=== PATIENT | male | born 1980 | race Two or more races ===

== ENCOUNTER 2025-03-09 15:29 | Inpatient (IN) | payer MEDICAID ==
[~2025-03-09] VITALS: Ht 167.6 cm; Wt 162.2 kg
[2025-03-09] MEDS: SODIUM CHLORIDE 0.9% 1,000 ML IV ONE (16:03)
--- NOTE | 2025-03-09 16:11 | ED.PDOC ---
GI ASSESSMENT HPI Comments HPI: Poor Historian. 44-year-old male brought in by ambulance from home for evaluation of three day history of generalized weakness with the associated dizziness and nausea and diarrhea yellow in color. Denies any vomiting. Patient states that his abdomen is severely distended and he has generalized abdominal discomfort. He said he had similar episodes approximately two weeks ago that lasted for one-week and resolved spontaneously however this time is abdomen is more distended than usual that concerned him so he called 911. Patient is taking Humalog for weight loss. Past Medical History: Past Surgical History: Cholecystectomy REVIEW OF SYSTEMS: CONSTITUTIONAL: Denies acute: fever, diaphoresis, chills, HEAD: Denies acute: headache, photophobia Eyes: Denies acute: Double vision, vision loss, eye pain, eye discharge. EARS: Denies acute: tinnitus, hearing loss, ear discharge, ear pain, THROAT: Denies acute: sore throat, swelling, difficulty swallowing , pain with swallowing, change in voice. NECK: Denies acute: neck pain, neck swelling, stiff neck. HEART: Denies acute : chest pain, palpitations, LUNGS: Denies acute: SOB, wheezing, cough, hemoptysis ABDOMEN: Denies acute: , Vomiting, melena , hematemesis, hematochezia SKIN: Denies acute: rash, redness, lesions, itchiness. EXTREMITIES: Denies acute: calf pain, numbness, tingling, weakness, denies pain in extremity. Denies acute: Low back pain. Neuro: Denies acute: focal neurological deficit, motor or sensory focal neurological deficit, tremors, seizure like activity, confusion, change in mental status, loss of bowel or bladder function, cauda equina like symptoms. : Denies acute: dysuria, hematuria, flank pain, increase in urinary frequency. PSYCH: Denies acute: hallucination, suicidal ideation, homicidal ideation. PHYSICAL EXAM: General: ---[id number]-----acute distress, awake and alert. Head: normocephalic, atraumatic. Neck: supple, trachea is midline, no swelling. Throat: Normal phonation. Eyes:, no erythema, no purulent discharge, no proptosis, no icterus. Heart: regular rate, regular rhythm, no significant murmur appreciated. Lungs: no apparent respiratory distress, Able to speak in full sentences. No wheezing, no rhonchi, no crackles. No stridors Clear to auscultation bilaterally. Abdomen: Generalized abdominal tender to palpation, noted generalized distended, soft, no guarding, no rebound, + bowel sounds. History of umbilical hernia, morbidly obese Neuro: Awake, Alert, oriented to name, self, situation, follows commands GCS=15. Speech is normal. Skin: no petechia, no purpura, no cyanosis, non-pale, not jaundice. Lower extremities: --no - Pitting edema no deformity, no focal swelling, no calf TTP. Makes eye contact. moves all four extremities. Face: no apparent facial droop. ED COURSE: DISCLAIMER: This medical document was created using an electronic medical record system with voice recognition software and computerized dictation system. Although this document has been carefully reviewed, there might still be some phonetic and typographical errors. Occasional wrong-word or "sound-alike" substitutions may have occurred due to the inherent limitations of voice recognition software. These areas are purely typographical due to imperfections of the software programs and do not reflect any compromise in the patient's medical care. Please read the chart carefully and recognize, using context, where these substitutions have occurred. Chief Complaint: Abdominal Pain Time Seen by MD: 15:35 Reviewed Notes: Allergies Allergies: Coded Allergies: NO KNOWN ALLERGIES (Unverified , 03/09/25) Information Source: Patient, Emergency Med Personnel Mode of Arrival: EMS Past Medical History PAST MEDICAL HISTORY: Denies Surgical History: Denies all surgeries Social History Smoker: Non-Smoker Alcohol: Denies ETOH Use Drugs: Denies Drug Use Lives In: Home X-Ray, Labs, Meds, VS Vital Signs Date Time Temp Pulse Resp B/P (MAP) Pulse Ox O2 Delivery O2 Flow Rate FiO2 03/09/25 15:50 98.8 110 20 144/78 (100) 96 98.8 03/09/25 15:50 Room Air* 0 21 03/09/25 15:32 98.5 102 22 132/88 97 98.5 Lab Test 03/09/25 15:44 Range/Units White Blood Count 17.8 H 4.4-10.8 10^3/uL Red Blood Count 6.67 H 4.5-5.90 10^6/uL Hemoglobin 19.3 H 13.5-17.5 g/dL Hematocrit 56.7 H 41.0-53.0 % Mean Corpuscular Volume 85.1 80.0-100.0 fL Mean Corpuscular Hemoglobin 28.9 28.0-32.0 pg Mean Corpuscular Hemoglobin Concent 34.0 32.0-36.0 g/dL Red Cell Distribution Width 15.0 H 11.8-14.3 % Platelet Count 298 140-450 10^3/uL Mean Platelet Volume 8.2 6.9-10.8 fL Neutrophils (%) (Auto) 84.8 H 37.0-80.0 % Lymphocytes (%) (Auto) 8.9 L 10.0-50.0 % Monocytes (%) (Auto) 5.2 0.0-12.0 % Eosinophils (%) (Auto) 0.8 0.0-7.0 % Basophils (%) (Auto) 0.3 0.0-2.0 % Neutrophils # (Auto) 15.1 H 1.6-8.6 10 ^3/uL Lymphocytes # (Auto) 1.6 0.4-5.4 10 ^3/uL Monocytes # (Auto) 0.9 0-1.3 10 ^3/uL Eosinophils # (Auto) 0.1 0-0.8 10 ^3/uL Basophils # (Auto) 0.1 0-0.2 10 ^3/uL Nucleated Red Blood Cells 0.4 % Prothrombin Time 11.4 9.3-11.8 sec Prothrombin Time INR 1.08 0.9-1.15 Activated Partial Thromboplast Time 27.2 24.5-34.5 SEC Sodium Level 138 136-145 mmol/L Potassium Level 3.8 3.5-5.1 mmol/L Chloride Level 107 98-107 mmol/L Carbon Dioxide Level 19 L 20-31 mmol/L Anion Gap 12 5-15 Blood Urea Nitrogen 21 9-23 mg/dL Creatinine 1.05 0.700-1.30 mg/dL Glomerular Filtration Rate Calc 90 >90 mL/min BUN/Creatinine Ratio 20.0 10.0-20.0 Serum Glucose 129 H 74-106 mg/dL Lactic Acid Level 1.5 0.4-2.0 mmol/L Calcium Level 9.6 8.7-10.4 mg/dL Total Bilirubin 0.9 0.2-1.0 mg/dL Aspartate Amino Transferase (AST) 59 H 13-40 U/L Alanine Aminotransferase (ALT) 125 H 7-40 U/L Alkaline Phosphatase 102 46-116 U/L Troponin I High Sensitivity < 3 L </=54 ng/L Total Protein 8.0 5.7-8.2 g/dL Albumin 4.9 H 3.2-4.8 g/dL Lipase 41 12-53 U/L Current Medications Medications (Trade) Dose Ordered Sig/Kya Route Start Time Stop Time Status Last Admin Sodium Chloride 1,000 ml @ 1,000 mls/hr Q1H ONCE IV 03/09/25 15:45 03/09/25 16:44 DC 03/09/25 16:03 Lactated Ringer's 1,900 ml @ 1,900 mls/hr ONCE ONCE IV 03/09/25 16:45 03/09/25 18:09 DC 03/09/25 16:45 [place] [address] Ph: [phone] DIAGNOSTIC IMAGING Diagnostic Imaging Report : [id number] Signed PATIENT: PAL AMES ACCT: [id number] UNIT: [id number] : 1980 LOC: ER ROOM / BED: / AGE / SEX: 44 / M ADM STATUS: REG ER SERVICE 1535 ORDERING PHYSICIAN: TIANA BAEZA DO PROCEDURE(s): ABPL - CT AB PEL WO CON-NO ORAL OR IV REASON: abd pain n/d ORDER NUMBER(s): [id number], ACCESSION NUMBER(s): [id number] Exam: CT CT AB PEL WO CON-NO ORAL OR IV History: abd pain n/d Comparison Study: None TECHNIQUE: Multidetector CT of the abdomen was performed from lung bases to pubic symphysis. Imaging was performed without IV contrast. Axial, coronal and sagittal multiplanar reformats were obtained from the axial data set by the morena hnologist. Radiation Dose Information: CT Dose: CTDI volume is 35.37 mGy. Dose-length product is 2023.16 mGy*cm FINDINGS: Evaluation of solid organs is limited due to lack of intravenous contrast use. Findings: Lung Bases: No acute or significant lung base finding. Normal heart size. Trace bilateral pleural effusions Liver: The liver is normal in size. No focal lesions. Gallbladder and Biliary Tree: Gallbladder has been surgically removed. Spleen: Unremarkable Pancreas: The pancreas is grossly normal in appearance. Adrenal Glands: Unremarkable Kidneys: Kidneys are grossly normal without calculi or hydronephrosis. Bladder: Grossly unremarkable for degree of distention. Bowel: The stomach is grossly normal in appearance. Small bowel and colon are normal in caliber and distribution. Mildly dilated fluid-filled small bowel may represent enteritis. The appendix is not visualized; however, no secondary findings of acute appendicitis identified. Ascites: Absent Lymphadenopathy: No mesenteric, retroperitoneal or periportal lymphadenopathy. Abdominal Wall and Mesentery: Unremarkable. Vasculature: The visualized abdominal aorta is normal in size and caliber. Evaluation of abdominal and pelvic vessels is limited due to lack of intravenous contrast. Pelvic Organs: Unremarkable Musculoskeletal: No aggressive focal bony lesions, acute fractures or dislocation. Soft tissues: Unremarkable IMPRESSION: 1. Mildly dilated fluid-filled small bowel may represent enteritis. 2. No free air or free fluid. HS:Y Radiation optimization: All CT scans at this facility use at least one of these dose optimization techniques: automated exposure control mA and/or kV adjustment per patient size (includes targeted exams where dose is matched to clinical indication) or iterative reconstruction. ATED BY: AMEE BENNETT Jr., DO DICTATED DATE/TIME: 03/09/25 162 SIGNED BY: AMEE BENNETT Jr., SIGNED DATE/TIME: 03/09/251628 CC: SEPSIS Sepsis Screen Date sepsis recognized/suspect: Mar 09, 2025 Time Sepsis recognized/suspect: 1550 Recent Procedure: No On Antibiotic Therapy: No Respiratory Rate >20: Yes Heart Rate >90: Yes Temp<36 C (96.8 F) or >38.3 C: No SBP <90 or MAP <65 mmHG: No New Acute Mental Status Change: No Is the patient on CPAP, BIPAP,: No Physician Orders Policy And Planning Manager (03/09/25 ) Urinalysis (03/09/25 15:35) Electrocardigram (03/09/25 15:35) Ct Ab Pel Wo Con-No Oral Or Iv (03/09/25 15:35) Nasogastric Tube Management (03/09/25 16:09) Npo Except For Medications (03/09/25 16:10) Npo (Nothing By Mouth) Diet (03/09/25 Dinner) Chest Xray 1 View (03/09/25 16:29) Blood Culture (03/09/25 16:43) Notify Md If Map <65 Or Bp<90 (03/09/25 16:43) If Map<65 Start Vasopressor (03/09/25 16:43) Sepsis Reassesment After Fluid (03/09/25 17:43) Pharmacy Clarification: (03/09/25 23:59) Ng To Lis (03/09/25 17:31) Vital Signs Date Time Temp Pulse Resp B/P (MAP) Pulse Ox O2 Delivery O2 Flow Rate FiO2 03/09/25 15:50 98.8 110 20 144/78 (100) 96 98.8 03/09/25 15:50 Room Air* 0 21 03/09/25 15:32 98.5 102 22 132/88 97 98.5 Laboratory Tests Test 03/09/25 15:44 Lactic Acid Level 1.5 mmol/L (0.4-2.0) White Blood Count 17.8 10^3/uL (4.4-10.8) H Medications Medications Dose Ordered Sig/Kya Route Start Time Stop Time Status Last Admin Dose Admin Lactated Ringer's 1,900 ml @ 1,900 mls/hr ONCE ONCE IV 03/09/25 16:45 03/09/25 18:09 DC 03/09/25 16:45 Sodium Chloride 1,000 ml @ 1,000 mls/hr Q1H ONCE IV 03/09/25 15:45 03/09/25 16:44 DC 03/09/25 16:03 Departure 1 Departure Time of Disposition: 16:11 Impression: Primary Impression: Enteritis Additional Impressions: Leukocytosis Elevated LFTs Sepsis Disposition: 09 ADMITTED INPATIENT Admit to: Tele Condition: Guarded Additional Instructions: [address] [address] Ph: [phone] DIAGNOSTIC IMAGING Diagnostic Imaging Report : [id number] Signed PATIENT: PAL AMES ACCT: [id number] UNIT: [id number] : 1980 LOC: ER ROOM / BED: / AGE / SEX: 44 / M ADM STATUS: REG ER SERVICE 1535 ORDERING PHYSICIAN: TIANA BAEZA DO PROCEDURE(s): ABPL - CT AB PEL WO CON-NO ORAL OR IV REASON: abd pain n/d ORDER NUMBER(s): [id number], ACCESSION NUMBER(s): [id number] Exam: CT CT AB PEL WO CON-NO ORAL OR IV History: abd pain n/d Comparison Study: None TECHNIQUE: Multidetector CT of the abdomen was performed from lung bases to pub ic symphysis. Imaging was performed without IV contrast. Axial, coronal and sagittal multiplanar reformats were obtained from the axial data set by the technologist. Radiation Dose Information: CT Dose: CTDI volume is 35.37 mGy. Dose-length product is 2023.16 mGy*cm FINDINGS: Evaluation of solid organs is limited due to lack of intravenous contrast use. Findings: Lung Bases: No acute or significant lung base finding. Normal heart size. Trace bilateral pleural effusions Liver: The liver is normal in size. No focal lesions. Gallbladder and Biliary Tree: Gallbladder has been surgically removed. Spleen: Unremarkable Pancreas: The pancreas is grossly normal in appearance. Adrenal Glands: Unremarkable Kidneys: Kidneys are grossly normal without calculi or hydronephrosis. Bladder: Grossly unremarkable for degree of distention. Bowel: The stomach is grossly normal in appearance. Small bowel and colon are normal in caliber and distribution. Mildly dilated fluid-filled small bowel may represent enteritis. The appendix is not visualized; however, no secondary findings of acute appendicitis identified. Ascites: Absent Lymphadenopathy: No mesenteric, retroperitoneal or periportal lymphadenopathy. Abdominal Wall and Mesentery: Unremarkable. Vasculature: The visualized abdominal aorta is normal in size and caliber. Evaluation of abdominal and pelvic vessels is limited due to lack of intravenous contrast. Pelvic Organs: Unremarkable Musculoskeletal: No aggressive focal bony lesions, acute fractures or dislocation. Soft tissues: Unremarkable IMPRESSION: 1. Mildly dilated fluid-filled small bowel may represent enteritis. 2. No free air or free fluid. HS:Y Radiation optimization: All CT scans at this facility use at least one of these dose optimization techniques: automated exposure control mA and/or kV adjustment per patient size (includes targeted exams where dose is matched to clinical indication) or iterative reconstruction. ATED BY: AMEE BENNETT Jr., DO DICTATED DATE/TIME: 03/09/251628 SIGNED BY: AMEE BENNETT Jr., SIGNED DATE/TIME: 03/09/251628 CC: Discharged With: Self I personally scribed for TIANA BAEZA DO ([email or web address]) on 03/09/25 at 16:43. Electronically submitted by Samuel Pacheco ([email or web address]). I personally scribed for TIANA BAEZA DO ([email or web address]) on 03/09/25 at 16:46. Electronically submitted by Samuel Pacheco ([email or web address]). TIANA BAEZA DO Mar 09, 2025 16:11
[2025-03-09 16:14] LABS: Hemoglobin 19.3 g/dL (13.5-17.5); Mean Corpuscular Volume 85.1 fL (80.0-100.0); Nucleated Red Blood Cells % 0.4 %
[2025-03-09 16:17] LABS: Mean Corpuscular Hemoglobin 28.9 pg (28.0-32.0)
[2025-03-09 16:26] LABS: Alkaline Phosphatase 102 U/L (46-116); Anion Gap 12 (5-15); BUN/Creatinine Ratio 20.0 (10.0-20.0); Blood Urea Nitrogen 21 mg/dL (9-23); Calcium 9.6 mg/dL (8.7-10.4); Lipase 41 U/L (12-53); Potassium 3.8 mmol/L (3.5-5.1); Sodium 138 mmol/L (136-145); Total Protein 8.0 g/dL (5.7-8.2)
[2025-03-09 16:27] LABS: Bilirubin, Total 0.9 mg/dL (0.2-1.0)
[2025-03-09 16:28] LABS: Hematocrit 56.7 % (41.0-53.0)
[2025-03-09 16:32] LABS: Alanine Aminotransferase 125 U/L (7-40); Albumin 4.9 g/dL (3.2-4.8); Carbon Dioxide 19 mmol/L (20-31); Chloride 107 mmol/L (98-107); Glucose 129 mg/dL (74-106)
--- NOTE | 2025-03-09 16:32 | DVH ---
Exam: CT CT AB PEL WO CON-NO ORAL OR IV History: abd pain n/d Comparison Study: None TECHNIQUE: Multidetector CT of the abdomen was performed from lung bases to pubic symphysis. Imaging was performed without IV contrast. Axial, coronal and sagittal multiplanar reformats were obtained fr om the axial data set by the technologist. Radiation Dose Information: CT Dose: CTDI volume is 35.37 mGy. Dose-length product is 2023.16 mGy*cm FINDINGS: Evaluation of solid organs is limited due to lack of intravenous contrast use. Findings: Lung Bases: No acute or significant lung base finding. Normal heart size. Trace bilateral pleural ef fusions Liver: The liver is normal in size. No focal lesions. Gallbladder and Biliary Tree: Gallbladder has been surgically removed. Spleen: Unremarkable Pancreas: The pancreas is grossly normal in appearance. Adrenal Glands: Unremarkable Kidneys: Kidneys are grossly normal without calculi or hydronephrosis. Bladder: Grossly unremarkable for degree of distention. Bowel: The stomach is grossly normal in appearance. Small bowel and colon are normal in caliber and d istribution. Mildly dilated fluid-filled small bowel may represent enteritis. The appendix is not vis ualized; however, no secondary findings of acute appendicitis identified. Ascites: Absent Lymphadenopathy: No mesenteric, retroperitoneal or periportal lymphadenopathy. Abdominal Wall and Mesentery: Unremarkable. Vasculature: The visualized abdominal aorta is normal in size and caliber. Evaluation of abdominal a nd pelvic vessels is limited due to lack of intravenous contrast. Pelvic Organs: Unremarkable Musculoskeletal: No aggressive focal bony lesions, acute fractures or dislocation. Soft tissues: Unremarkable IMPRESSION: 1. Mildly dilated fluid-filled small bowel may represent enteritis. 2. No free air or free fluid. HS:Y Radiation optimization: All CT scans at this facility use at least one of these dose optimization morena hniques: automated exposure control mA and/or kV adjustment per patient size (includes targeted exam s where dose is matched to clinical indication) or iterative reconstruction.
[2025-03-09] MEDS: LACTATED RINGER'S 1,900 ML IV ONE (16:45)
--- NOTE | 2025-03-09 17:01 | DVH ---
CHEST RADIOGRAPH Indication: S/P NGT PALCEMENT Technique: Single frontal view of the chest was obtained Comparison: None FINDINGS: Lines and Tubes: None Lungs: No focal consolidation. Pleura: No effusion. No pneumothorax. Cardiomediastinal contours: Unremarkable Bones: No acute osseous abnormality. IMPRESSION: 1. Enteric tube below the left diaphragm in the stomach. HS:Y
[2025-03-09 17:36] LABS: INR 1.08 (0.9-1.15); Partial Thromboplastin Time 27.2 SEC (24.5-34.5); Prothrombin Time 11.4 sec (9.3-11.8)
[2025-03-09] MEDS: CIPROFLOXACIN 400MG/200ML 200 ML IV ONE (18:28)
[2025-03-09] MEDS: FAMOTIDINE (10MG/ML) 2ML VL IV ONE (19:37)
[2025-03-09] MEDS ORDERED: MORPHINE SULFATE INJ 2 MG/ml SYRG IV PRN ×2 (20:15→21:30)
[2025-03-09] MEDS ORDERED: HYDROcodone-ACET 5/325MG TAB PO PRN (20:15)
[2025-03-09] MEDS ORDERED: DOCUSATE SOD 100 MG CAP PO PRN (20:15)
[2025-03-09] MEDS ORDERED: ACETAMINOPHEN 325 MG TAB PO PRN (20:15)
[2025-03-09] MEDS: SODIUM CHLORIDE 0.9% 1,000 ML IV SCH (20:28)
[2025-03-09 21:24] LABS: Urine Protein, UAD TRACE (Negative)
[2025-03-09] MEDS ORDERED: NITROGLYCERIN 0.4 MG SL TAB SL PRN (21:30)
[2025-03-09] MEDS: ONDANSETRON HCL 4 MG/2 ML VIAL IV PRN (21:33)
--- NOTE | 2025-03-09 21:38 | DVHHP2 ---
History of Present Illness Reason for Visit: Enteritis History of Present Illness The patient is a 44-year-old male with past medical history of gallstones status post cholecystectomy who presented to [facility] ED with complaint of generalized weakness. Patient reports symptoms progressively get worse with severely distended abdomen, dizziness, nausea, and diarrhea in yellow color. Patient reports similar episode a proximally two weeks ago that lasted for one week and resolved spontaneously, however, this time his abdomen is more distended than usual that prompted this visit. Patient was seen and evaluated in the ED, laboratory data shows WBC 17.8, platelets 298, sodium 138, potassium 3.8, BUN 21, creatinine 1.05, GFR 90, glucose 129, calcium 9.6, albumin 4.9, troponin 3, AST 59, ALT 125, blood pressure 119/62, heart rate 93, temperature 97.6 F, O2 saturation 93% on oxygen. Abdomen/pelvis CT revealing mildly dilated fluid-filled small bowel may represent enteritis, no free air or free fluid. Chest x-ray revealing enteric tube below the left diaphragm in the stomach. Patient was started on IV antibiotic regimen Flagyl, please see medication orders section in the computer. On my assessment, patient denied chest pain, no headache, no dizziness, currently on oxygen, no abdominal pain, no nausea diarrhea at this moment, no fever, no chills. Patient was admitted for further evaluation and medical management. Past Medical History Gallstones Past Surgical History Cholecystectomy Family History Reviewed, noncontributory to the management of this case. Past Social History The patient lives at home, denies smoking, alcohol or illicit drugs abuse. Review of Systems Constitutional: No: Fever, Chills, Sweats, Weakness, Malaise, Other Eyes: No: Pain, Vision change, Conjunctivae inflammation, Eyelid inflammation, Other, Redness ENT: Other (NG tube in place); No: Ear pain, Ear discharge, Nose pain, Nose discharge, Nose congestion, Mouth pain, Mouth swelling, Throat pain, Throat swelling Respiratory: No: Cough, Dry, Shortness of breath, SOB with excertion, Wheezing, Hemoptysis, Pleuritic Pain, Sputum, Wheezing, Other Cardiovascular: No: Chest Pain, Palpitations, Orthopnea, Paroxysmal Noc. Dyspnea, Edema, Lt Headedness, Other Gastrointestinal: Nausea, Diarrhea, Other (Distended abdomen); No: Vomiting, Abdominal Pain, Constipation, Melena, Hematochezia Genitourinary: No Dysuria, No Frequency, No Incontinence, No Hematuria, No Retention, No Other Musculoskeletal: No: other, neck pain, shoulder pain, arm pain, back pain, hand pain, leg pain, foot pain Skin: No: Rash, Lesions, Jaundice, Bruising, Other Neurological: No: Weakness, Numbness, Incoordination, Change in speech, Confusion, Seizures, Other Allergies: Coded Allergies: NO KNOWN ALLERGIES (Unverified , 03/09/25) Medications Current Medications Medications Dose Ordered Sig/Kya Route Start Time Stop Time Status Last Admin Dose Admin Ceftriaxone Sodium 50 ml @ 100 mls/hr DAILY@09 IV 03/10/25 09:00 Metronidazole 100 ml @ 100 mls/hr Q8HR IV 03/09/25 22:00 03/09/25 21:33 100 MLS/HR Famotidine 20 mg DAILY IV 03/10/25 10:00 Sodium Chloride 1,000 ml @ 60 mls/hr [id number] IV 03/09/25 20:15 03/09/25 20:28 60 MLS/HR Acetaminophen/ Hydrocodone Bitart 1 tab Q4HP PRN PO 03/09/25 20:15 Ondansetron HCl 4 mg Q4HP PRN IV 03/09/25 20:15 03/09/25 21:33 4 MG Docusate Sodium 100 mg BIDPRN PRN PO 03/09/25 20:15 Acetaminophen 650 mg Q6HP PRN PO 03/09/25 20:15 Morphine Sulfate 2 mg Q4HPRN PRN IV 03/09/25 20:15 Exam Vital Signs Vital Signs Date Time Temp Pulse Resp B/P (MAP) Pulse Ox O2 Delivery O2 Flow Rate FiO2 03/09/25 19:17 Nasal Cannula* 2 28 03/09/25 19:17 97.6 93 16 119/62 (81 93 97.6 General Appearance: Alert, Oriented X3, Cooperative, No acute distress HEENT: Atraumatic, PERRLA, EOMI, Mucous membr. moist/pink Respiratory: Normal air movement Cardiovascular: Regular rate, Normal S1, Normal S2, No murmurs Abdominal: Normal bowel sounds, Soft, No hepatospenomegaly, No masses, Other (Distended abdomen/tenderness) Extremities: No clubbing, No cyanosis, No edema, Normal pulses Skin: No rashes, No breakdown, No significant lesion Neuro: Normal gait, Normal speech, Strength at 5/5 X4 ext, Normal tone, Sensation intact, Cranial nerves 3-12 NL, Reflexes 2+ Psych/Mental Status: Mental status NL, Mood NL Labs/Xrays Labs Test 03/09/25 20:56 03/09/25 15:44 Range/Units Urine Color Yellow Yellow Urine Clarity Clear Clear Urine pH 5.5 5.0-9.0 Urine Specific [place] 1.026 1.001-1.035 Urine Protein Trace H Negative Urine Ketones Negative Negative Urine Blood Negative Negative /uL Urine Nitrite Negative Negative Urine Bilirubin Negative Negative Urine Urobilinogen Normal Negative mg/dL Urine Leukocyte Esterase Negative Negative /uL Urine RBC <1 0 - 3 /hpf Urine Microscopic WBC 3 0-3 /HPF Urine Squamous Epithelial Cells Few <5 /hpf Urine Bacteria None seen None Seen /hpf Urine Mucus Few None Seen Urine Glucose Normal Normal mg/dL White Blood Count 17.8 H 4.4-10.8 10^3/uL Red Blood Count 6.67 H 4.5-5.90 10^6/uL Hemoglobin 19.3 H 13.5-17.5 g/dL Hematocrit 56.7 H 41.0-53.0 % Mean Corpuscular Volume 85.1 80.0-100.0 fL Mean Corpuscular Hemoglobin 28.9 28.0-32.0 pg Mean Corpuscular Hemoglobin Concent 34.0 32.0-36.0 g/dL Red Cell Distribution Width 15.0 H 11.8-14.3 % Platelet Count 298 140-450 10^3/uL Mean Platelet Volume 8.2 6.9-10.8 fL Neutrophils (%) (Auto) 84.8 H 37.0-80.0 % Lymphocytes (%) (Auto) 8.9 L 10.0-50.0 % Monocytes (%) (Auto) 5.2 0.0-12.0 % Eosinophils (%) (Auto) 0.8 0.0-7.0 % Basophils (%) (Auto) 0.3 0.0-2.0 % Neutrophils # (Auto) 15.1 H 1.6-8.6 10 ^3/uL Lymphocytes # (Auto) 1.6 0.4-5.4 10 ^3/uL Monocytes # (Auto) 0.9 0-1.3 10 ^3/uL Eosinophils # (Auto) 0.1 0-0.8 10 ^3/uL Basophils # (Auto) 0.1 0-0.2 10 ^3/uL Nucleated Red Blood Cells 0.4 % Prothrombin Time 11.4 9.3-11.8 sec Prothrombin Time INR 1.08 0.9-1.15 Activated Partial Thromboplast Time 27.2 24.5-34.5 SEC Sodium Level 138 136-145 mmol/L Potassium Level 3.8 3.5-5.1 mmol/L Chloride Level 107 98-107 mmol/L Carbon Dioxide Level 19 L 20-31 mmol/L Anion Gap 12 5-15 Blood Urea Nitrogen 21 9-23 mg/dL Creatinine 1.05 0.700-1.30 mg/dL Glomerular Filtration Rate Calc 90 >90 mL/min BUN/Creatinine Ratio 20.0 10.0-20.0 Serum Glucose 129 H 74-106 mg/dL Lactic Acid Level 1.5 0.4-2.0 mmol/L Calcium Level 9.6 8.7-10.4 mg/dL Total Bilirubin 0.9 0.2-1.0 mg/dL Aspartate Amino Transferase (AST) 59 H 13-40 U/L Alanine Aminotransferase (ALT) 125 H 7-40 U/L Alkaline Phosphatase 102 46-116 U/L Troponin I High Sensitivity < 3 L </=54 ng/L Total Protein 8.0 5.7-8.2 g/dL Albumin 4.9 H 3.2-4.8 g/dL Lipase 41 12-53 U/L PATIENT: PAL AMES ACCT: [id number] UNIT: [id number] : 1980 LOC: ER ROOM / BED: / AGE / SEX: 44 / M ADM STATUS: REG ER SERVICE [id number] ORDERING PHYSICIAN: TIANA BAEZA DO PROCEDURE(s): ABPL - CT AB PEL WO CON-NO ORAL OR IV REASON: abd pain n/d ORDER NUMBER(s): [id number], ACCESSION NUMBER(s): [id number] Exam: CT CT AB PEL WO CON-NO ORAL OR IV History: abd pain n/d Comparison Study: None TECHNIQUE: Multidetector CT of the abdomen was performed from lung bases to pubic symphysis. Imaging was performed without IV contrast. Axial, coronal and sagittal multiplanar reformats were obtained from the axial data set by the technologist. Radiation Dose Information: CT Dose: CTDI volume is 35.37 mGy. Dose-length product is 2023.16 mGy*cm FINDINGS: Evaluation of solid organs is limited due to lack of intravenous contrast use. Findings: Lung Bases: No acute or significant lung base finding. Normal heart size. Trace bilateral pleural effusions Liver: The liver is normal in size. No focal lesions. Gallbladder and Biliary Tree: Gallbladder has been surgically removed. Spleen: Unremarkable Pancreas: The pancreas is grossly normal in appearance. Adrenal Glands: Unremarkable Kidneys: Kidneys are grossly normal without calculi or hydronephrosis. Bladder: Grossly unremarkable for degree of distention. Bowel: The stomach is grossly normal in appearance. Small bowel and colon are normal in caliber and distribution. Mildly dilated fluid-filled small bowel may represent enteritis. The appendix is not visualized; however, no secondary findings of acute appendicitis identified. Ascites: Absent Lymphadenopathy: No mesenteric, retroperitoneal or periportal lymphadenopathy. Abdominal Wall and Mesentery: Unremarkable. Vasculature: The visualized abdominal aorta is normal in size and caliber. Ev aluation of abdominal and pelvic vessels is limited due to lack of intravenous contrast. Pelvic Organs: Unremarkable Musculoskeletal: No aggressive focal bony lesions, acute fractures or dislocation. Soft tissues: Unremarkable IMPRESSION: 1. Mildly dilated fluid-filled small bowel may represent enteritis. 2. No free air or free fluid. ORDERING PHYSICIAN: TIANA BAEZA DO PROCEDURE(s): CXR1 - CHEST XRAY 1 VIEW REASON: S/P NGT PALCEMENT ORDER NUMBER(s): [id number], ACCESSION NUMBER(s): [id number] CHEST RADIOGRAPH Indication: S/P NGT PALCEMENT Technique: Single frontal view of the chest was obtained Comparison: None FINDINGS: Lines and Tubes: None Lungs: No focal consolidation. Pleura: No effusion. No pneumothorax. Cardiomediastinal contours: Unremarkable Bones: No acute osseous abnormality. IMPRESSION: 1. Enteric tube below the left diaphragm in the stomach. SEPSIS Sepsis Screen Date sepsis recognized/suspect: Mar 09, 2025 Time Sepsis recognized/suspect: 1916 Recent Procedure: No On Antibiotic Therapy: Yes Respiratory Rate >20: No Heart Rate >90: Yes Temp<36 C (96.8 F) or >38.3 C: No SBP <90 or MAP <65 mmHG: No New Acute Mental Status Change: No Is the patient on CPAP, BIPAP,: No Physician Orders [employer] (03/09/25 ) Electrocardigram (03/09/25 15:35) Ct Ab Pel Wo Con-No Oral Or Iv (03/09/25 15:35) Nasogastric Tube Management (03/09/25 16:09) Npo Except For Medications (03/09/25 16:10) Chest Xray 1 View (03/09/25 16:29) Blood Culture (03/09/25 16:43) Notify Md If Map <65 Or Bp<90 (03/09/25 16:43) If Map<65 Start Vasopressor (03/09/25 16:43) Sepsis Reassesment After Fluid (03/09/25 17:43) Pharmacy Clarification: (03/09/25 23:59) Ng To Lis (03/09/25 17:31) Ceftriaxone 1gm/50ml D5w (Rocephin) (03/10/25 09:00) Metronidazole 500mg/100ml (Flagyl 500mg/ (03/09/25 22:00) Famotidine Injection (Pepcid Injection) (03/10/25 10:00) Allergies (03/09/25 20:03) Code Status (03/09/25 20:03) Sodium Chloride 0.9% (03/09/25 20:15) Oxygen Per Hour (03/09/25 20:03) Hydrocodone-Acet 5/325mg Tab ([place] 5/32 (03/09/25 20:15) Ondansetron Hcl (Zofran) (03/09/25 20:15) Docusate Sodium Capsule (Colace Capsule) (03/09/25 20:15) Complete Blood Count (03/10/25 04:00) Comprehensive Metabolic Panel (03/10/25 04:00) Condition: Serious (03/09/25 20:03) Acetaminophen Tablet (Tylenol Tablet) (03/09/25 20:15) Clear Liq Diet (03/10/25 Breakfast) Bedrest With Bathroom Privileg (03/09/25 20:03) Morphine Sulfate Injection (03/09/25 20:15) Sequential Compression Device (03/09/25 ) Vital Signs Date Time Temp Pulse Resp B/P (MAP) Pulse Ox O2 Delivery O2 Flow Rate FiO2 03/09/25 19:17 Nasal Cannula* 2 28 03/09/25 19:17 97.6 93 16 119/62 (81) 93 97.6 03/09/25 18:00 97.8 96 20 116/70 (85) 94 97.8 03/09/25 15:50 98.8 110 20 144/78 (100) 96 98.8 03/09/25 15:50 Room Air* 0 21 03/09/25 15:32 98.5 102 22 132/88 97 98.5 Laboratory Tests Test 03/09/25 15:44 Lactic Acid Level 1.5 mmol/L (0.4-2.0) White Blood Count 17.8 10^3/uL (4.4-10.8) H Medications Medications Dose Ordered Sig/Kya Route Start Time Stop Time Status Last Admin Dose Admin Ciprofloxacin 200 ml @ 200 mls/hr ONCE ONCE IV 03/09/25 16:45 03/09/25 18:09 DC 03/09/25 18:28 200 MLS/HR Famotidine 20 mg ONCE ONCE IV 03/09/25 19:45 03/09/25 19:46 DC 03/09/25 19:37 20 MG Lactated Ringer's 1,900 ml @ 1,900 mls/hr ONCE ONCE IV 03/09/25 16:45 03/09/25 18:09 DC 03/09/25 16:45 1,900 MLS/HR Metronidazole 100 ml @ 100 mls/hr ONCE ONCE IV 03/09/25 16:45 03/09/25 18:09 DC 03/09/25 17:45 100 MLS/HR Metronidazole 100 ml @ 100 mls/hr Q8HR IV 03/09/25 22:00 03/09/25 21:33 100 MLS/HR Ondansetron HCl 4 mg Q4HP PRN IV 03/09/25 20:15 03/09/25 21:33 4 MG Sodium Chloride 1,000 ml @ 60 mls/hr [id number] IV 03/09/25 20:15 03/09/25 20:28 60 MLS/HR Sodium Chloride 1,000 ml @ 1,000 mls/hr Q1H ONCE IV 03/09/25 15:45 03/09/25 16:44 DC 03/09/25 16:03 1,000 MLS/HR Assessment/Plan Assessment/Plan Enteritis Distended abdomen Morbid obesity Leukocytosis, unspecified Elevated liver enzymes Plan 1. Admit to telemetry unit 2. Breathing treatment 3. Pain control management 4. IV antibiotic management 5. Management of fluids and electrolytes 6. Consultation for GI/hospitalist 7. Diagnostic test abdomen/pelvis CT 8. DVT prophylaxis-on SCDs 9. Repeat labs CBC, CMP in a.m. 10. Home medication reviewed and reconciled 11. Continue with current medical management 12. Treatment plan discussed with patient and RN. Patient verbalized understanding. Plan discussed with: Patient, Other (RN) My Orders Orders - DEVYN BREWSTER DNP Procedure Category Date Status Time Ceftriaxone 1gm/50ml PHA 03/10/25 In Process D5w (Rocephin) 09:00 Metronidazole PHA 03/09/25 In Process 500mg/100ml (Flagyl 22:00 Famotidine Injection PHA 03/10/25 In Process (Pepcid Injection) 10:00 Allergies YEIMI 03/09/25 In Process 20:03 Code Status CODE 03/09/25 Transmitted 20:03 Sodium Chloride 0.9% PHA 03/09/25 In Process 20:15 Oxygen Per Hour RT 03/09/25 Transmitted 20:03 Hydrocodone-Acet PHA 03/09/25 In Process 5/325mg Tab ([place] 20:15 Ondansetron Hcl PHA 03/09/25 In Process (Zofran) 20:15 Docusate Sodium PHA 03/09/25 In Process Capsule (Colace 20:15 Complete Blood Count LAB 03/10/25 Verified 04:00 Comprehensive LAB 03/10/25 Verified Metabolic Panel 04:00 Condition: Serious YEIMI 03/09/25 In Process 20:03 Acetaminophen Tablet PHA 03/09/25 In Process (Tylenol Tablet) 20:15 Clear Liq Diet DIET 03/10/25 Transmitted Breakfast Bedrest With Bathroom YEIMI 03/09/25 In Process Privileg 20:03 Morphine Sulfate PHA 03/09/25 In Process Injection 20:15 Sequential YEIMI 03/09/25 In Process Compression Device Problem List: (1) Enteritis (2) Distended abdomen (3) Morbid obesity (4) Leukocytosis, unspecified (5) Elevated liver enzymes Date of Service: Mar 09, 2025 Billing Provider: DEVYN BREWSTER DNP Common Visit Codes: [id number] INP/OBS CARE (HIGH) DEVYN BREWSTER DNP Mar 09, 2025 21:38
[2025-03-09 23:05] VITALS: BP 96/53; PULSE 90; RESP 17; TEMP 97.4; O2SAT 94
[2025-03-09 23:29] VITALS: BP 96/53; PULSE 90; RESP 17; TEMP 97.4; O2SAT 94
[2025-03-09 23:34] VITALS: PULSE 90; RESP 17; O2SAT 94
[2025-03-10] VITALS (8 sets, daily range): BP systolic 100–130; BP diastolic 56–81; PULSE 64–97; RESP 16–20; TEMP 97.6–98.3; O2SAT 92–97
[2025-03-10] MEDS ORDERED: SEMA2INJ3 SC (06:32)
[2025-03-10 08:04] LABS: Hematocrit 46.6 % (41.0-53.0); Hemoglobin 15.7 g/dL (13.5-17.5); Mean Corpuscular Hemoglobin 28.8 pg (28.0-32.0); Mean Corpuscular Volume 85.3 fL (80.0-100.0); Nucleated Red Blood Cells % 0.0 %
[2025-03-10 08:17] LABS: Albumin 3.8 g/dL (3.2-4.8); Alkaline Phosphatase 78 U/L (46-116); Anion Gap 7 (5-15); BUN/Creatinine Ratio 14.3 (10.0-20.0); Blood Urea Nitrogen 12 mg/dL (9-23); Carbon Dioxide 22 mmol/L (20-31); Glucose 100 mg/dL (74-106); Potassium 3.8 mmol/L (3.5-5.1); Sodium 140 mmol/L (136-145); Total Protein 6.2 g/dL (5.7-8.2)
[2025-03-10 08:18] LABS: Bilirubin, Total 0.8 mg/dL (0.2-1.0)
[2025-03-10 08:19] LABS: Alanine Aminotransferase 90 U/L (7-40); Calcium 8.4 mg/dL (8.7-10.4); Chloride 111 mmol/L (98-107)
[2025-03-10] MEDS: FAMOTIDINE (10MG/ML) 2ML VL IV SCH (09:01)
[2025-03-10] MEDS: cefTRIAXone 1GM/50ML D5W 50 ML IV SCH (09:01)
--- NOTE | 2025-03-10 14:04 | DVH ---
Date: 03/10/2025 10:29 AM Examination: XY KUB ABDOMEN SINGLE VIEW History: obstruction Comparison: None TECHNIQUE: Frontal views of the abdomen was obtained. FINDINGS: Multiple slightly dilated loops of small bowel are seen throughout the abdomen which may reflect ile us versus small-bowel obstruction The lung bases are unremarkable. No acute osseous abnormality identified. IMPRESSION: 1. Multiple slightly dilated loops of small bowel are seen throughout the abdomen which may reflect ileus versus small-bowel obstruction
--- NOTE | 2025-03-10 16:43 | DVHPN2 ---
Subjective Patient reports that abdominal distention has improved. Reviewed: Care Plan, H&P, Labs, Medications Changes from previous H/P or p: No Changes General: Per HPI Eyes: No Pain, No Vision change, No Conjunctivae inflammation, No Eyelid inflammation, No Other, No Redness ENT: No Ear pain, No Ear discharge, No Nose pain, No Nose discharge, No Nose congestion, No Mouth pain, No Mouth swelling, No Throat pain, No Throat swelling; Other (NG tube in place) Cardiovascular: No Chest Pain, No Palpitations, No Orthopnea, No Paroxysmal Noc. Dyspnea, No Edema, No Lt Headedness, No Other Respiratory: No Cough, No Dry, No Shortness of breath, No SOB with excertion, No Wheezing, No Hemoptysis, No Pleuritic Pain, No Sputum, No Other Gastrointestinal: Nausea; No Vomiting, No Abdominal Pain; Diarrhea; No Constipation, No Melena, No Hematochezia; Other (Distended abdomen) Genitourinary: No Dysuria, No Frequency, No Incontinence, No Hematuria, No Retention, No Other Musculoskeletal: No other, No neck pain, No shoulder pain, No arm pain, No back pain, No hand pain, No leg pain, No foot pain Skin: No Rash, No Lesions, No Jaundice, No Bruising, No Other Objective Vitals Vital Signs Date Time Temp Pulse Resp B/P (MAP) Pulse Ox O2 Delivery O2 Flow Rate FiO2 03/10/25 13:32 97.6 76 20 103/77 (86) 97 97.6 03/10/25 08:00 Room Air* 0 21 Intake/Output Intake and Output 03/10/25 07:00 Intake Total 2460 ml Balance 2460 ml Intake Oral 100 ml IV Total 2360 ml # Voids 1 # Bowel Movements 1 General Appearance: Alert, Oriented X3, Cooperative, No acute distress, Other (Obese) HEENT: Atraumatic, PERRLA Lungs: Clear to auscultation, Normal air movement Cardiovascular: Normal S1, Normal S2 Abdomen: Normal bowel sounds, Soft, No tenderness Musculoskeletal: Normal sensory function, Normal motor function Extremities: No clubbing, No cyanosis, No edema, Normal pulses, No tenderness/swelling Skin: Intact Psych/Mental Status: Mental status NL, Mood NL Medications Current Medications Medications Dose Ordered Sig/Kya Route Start Time Stop Time Status Last Admin Dose Admin Ceftriaxone Sodium 50 ml @ 100 mls/hr DAILY@09 IV 03/10/25 09:00 03/10/25 09:01 100 MLS/HR Metronidazole 100 ml @ 100 mls/hr Q8HR IV 03/09/25 22:00 03/10/25 13:58 100 MLS/HR Famotidine 20 mg DAILY IV 03/10/25 10:00 03/10/25 09:01 20 MG Sodium Chloride 1,000 ml @ 60 mls/hr [id number] IV 03/09/25 20:15 03/10/25 01:44 60 MLS/HR Acetaminophen/ Hydrocodone Bitart 1 tab Q4HP PRN PO 03/09/25 20:15 Ondansetron HCl 4 mg Q4HP PRN IV 03/09/25 20:15 03/09/25 21:33 4 MG Docusate Sodium 100 mg BIDPRN PRN PO 03/09/25 20:15 Acetaminophen 650 mg Q6HP PRN PO 03/09/25 20:15 Morphine Sulfate 2 mg Q4HPRN PRN IV 03/09/25 20:15 Nitroglycerin 0.4 mg Q5MINP PRN SL 03/09/25 21:30 Morphine Sulfate 2 mg Q30M PRN IV 03/09/25 21:30 Laboratory Results Laboratory Tests 03/10/25 07:26 Chemistry Test 03/10/25 07:26 Albumin 3.8 g/dL (3.2-4.8) Calcium Level 8.4 mg/dL (8.7-10.4) L Total Protein 6.2 g/dL (5.7-8.2) LFT Test 03/10/25 07:26 Alanine Aminotransferase (ALT) 90 U/L (7-40) H Alkaline Phosphatase 78 U/L (46-116) Aspartate Amino Transferase (AST) 41 U/L (13-40) H Total Bilirubin 0.8 mg/dL (0.2-1.0) Urinalysis Test 03/09/25 20:56 Urine Color Yellow (Yellow) Urine Clarity Clear (Clear) Urine pH 5.5 (5.0-9.0) Urine Specific [place] 1.026 (1.001-1.035) Urine Protein Trace (Negative) H Urine Ketones Negative (Negative) Urine Blood Negative /uL (Negative) Urine Nitrite Negative (Negative) Urine Bilirubin Negative (Negative) Urine Urobilinogen Normal mg/dL (Negative) Urine Leukocyte Esterase Negative /uL (Negative) Urine RBC <1 /hpf (0 - 3) Urine Microscopic WBC 3 /HPF (0-3) Urine Squamous Epithelial Cells Few /hpf (<5) Urine Bacteria None seen /hpf (None Seen) Urine Mucus Few (None Seen) Urine Glucose Normal mg/dL (Normal) Labs and/or images reviewed: Labs reviewed by me, Image(s) reviewed by me Assessment/Plan Assessment/Plan Impression: -gastroparesis secondary to GLP-1 -morbid obesity -? Bowel obstruction -leukocytosis, rule out sepsis Plan: -NG tube removed. Repeat KUB reveals small-bowel dilatation. -start clear liquid diet -continue Protonix with Reglan -continue antibiotic therapy at this time -gentle IV hydration -repeat KUB in the a.m. Total time spent with patient discussing and formulating plan of care: 35 minutes. This medical document was created using an electronic medical record system with [employer] dictation system. Although this document has been carefully reviewed, there may still be some phonetic and typographical errors. These areas are purely typographical due to imperfections of the software programs, and do not reflect any compromise in the patient's medical care. Plan discussed with: Patient, Other (RN) My Orders Orders - VALDO CARLIN NP Procedure Category Date Status Time Kub Abdomen Single XY 03/10/25 Resulted View 09:47 Transfer Orders XFER 03/10/25 Transmitted 09:48 Date of Service: Mar 10, 2025 Billing Provider: VALDO CARLIN NP Common Visit Codes: [id number] INP/OBS CARE(HIGH) VALDO CARLIN NP Mar 10, 2025 16:42
[2025-03-10] MEDS: METOCLOPRAMIDE HCL 5MG/ml INJ 2ml VIAL IV ONE (18:52)
[2025-03-11 01:00] VITALS: BP 106/74; PULSE 76; RESP 17; TEMP 97.4; O2SAT 93
[2025-03-11 05:00] VITALS: BP 113/73; PULSE 71; RESP 17; TEMP 97.4; O2SAT 94
[2025-03-11 09:00] VITALS: BP 106/77; PULSE 81; RESP 18; TEMP 98; O2SAT 93
--- NOTE | 2025-03-11 09:50 | DVH ---
Indication: Gastroparesis Technique: XY KUB ABDOMEN SINGLE VIEWXY Comparison: 03/10/2025 FINDINGS/IMPRESSION: Distention of small-bowel loops up to 4.4 cm which could represent ileus, bowel obstruction. Recommen d surgical consultation for further evaluation. Moderate gaseous distention of the large bowel loops up to 6 cm could represent ileus.
--- NOTE | 2025-03-11 12:08 | DVHPN2 ---
Subjective Patient reports that abdominal distention has improved. Reviewed: Care Plan, H&P, Labs, Medications Changes from previous H/P or p: No Changes General: Per HPI Eyes: No Pain, No Vision change, No Conjunctivae inflammation, No Eyelid inflammation, No Other, No Redness ENT: No Ear pain, No Ear discharge, No Nose pain, No Nose discharge, No Nose congestion, No Mouth pain, No Mouth swelling, No Throat pain, No Throat swelling; Other (NG tube in place) Cardiovascular: No Chest Pain, No Palpitations, No Orthopnea, No Paroxysmal Noc. Dyspnea, No Edema, No Lt Headedness, No Other Respiratory: No Cough, No Dry, No Shortness of breath, No SOB with excertion, No Wheezing, No Hemoptysis, No Pleuritic Pain, No Sputum, No Other Gastrointestinal: Nausea; No Vomiting, No Abdominal Pain; Diarrhea; No Constipation, No Melena, No Hematochezia; Other (Distended abdomen) Genitourinary: No Dysuria, No Frequency, No Incontinence, No Hematuria, No Retention, No Other Musculoskeletal: No other, No neck pain, No shoulder pain, No arm pain, No back pain, No hand pain, No leg pain, No foot pain Skin: No Rash, No Lesions, No Jaundice, No Bruising, No Other Objective Vitals Vital Signs Date Time Temp Pulse Resp B/P (MAP) Pulse Ox O2 Delivery O2 Flow Rate FiO2 03/11/25 09:00 98.0 81 18 106/77 (87) 93 98.0 03/11/25 08:00 Room Air* 0 21 Intake/Output Intake and Output 03/11/25 07:00 Intake Total 3710 ml Balance 3710 ml Intake Oral 2410 ml IV Total 1300 ml # Voids 5 # Bowel Movements 3 General Appearance: Alert, Oriented X3, Cooperative, No acute distress, Other (Obese) HEENT: Atraumatic, PERRLA Lungs: Clear to auscultation, Normal air movement Cardiovascular: Normal S1, Normal S2 Abdomen: Normal bowel sounds, Soft, No tenderness Musculoskeletal: Normal sensory function, Normal motor function Extremities: No clubbing, No cyanosis, No edema, Normal pulses, No tenderness/swelling Skin: Intact Psych/Mental Status: Mental status NL, Mood NL Medications Current Medications Medications Dose Ordered Sig/Kya Route Start Time Stop Time Status Last Admin Dose Admin Ceftriaxone Sodium 50 ml @ 100 mls/hr DAILY@09 IV 03/10/25 09:00 03/11/25 08:45 100 MLS/HR Metronidazole 100 ml @ 100 mls/hr Q8HR IV 03/09/25 22:00 03/11/25 05:20 100 MLS/HR Famotidine 20 mg DAILY IV 03/10/25 10:00 03/11/25 08:45 20 MG Sodium Chloride 1,000 ml @ 60 mls/hr [id number] IV 03/09/25 20:15 03/11/25 05:19 60 MLS/HR Acetaminophen/ Hydrocodone Bitart 1 tab Q4HP PRN PO 03/09/25 20:15 Ondansetron HCl 4 mg Q4HP PRN IV 03/09/25 20:15 03/09/25 21:33 4 MG Docusate Sodium 100 mg BIDPRN PRN PO 03/09/25 20:15 Acetaminophen 650 mg Q6HP PRN PO 03/09/25 20:15 Morphine Sulfate 2 mg Q4HPRN PRN IV 03/09/25 20:15 Nitroglycerin 0.4 mg Q5MINP PRN SL 03/09/25 21:30 Morphine Sulfate 2 mg Q30M PRN IV 03/09/25 21:30 Laboratory Results Laboratory Tests 03/10/25 07:26 Urinalysis Test 03/09/25 20:56 Urine Color Yellow (Yellow) Urine Clarity Clear (Clear) Urine pH 5.5 (5.0-9.0) Urine Specific [place] 1.026 (1.001-1.035) Urine Protein Trace (Negative) H Urine Ketones Negative (Negative) Urine Blood Negative /uL (Negative) Urine Nitrite Negative (Negative) Urine Bilirubin Negative (Negative) Urine Urobilinogen Normal mg/dL (Negative) Urine Leukocyte Esterase Negative /uL (Negative) Urine RBC <1 /hpf (0 - 3) Urine Microscopic WBC 3 /HPF (0-3) Urine Squamous Epithelial Cells Few /hpf (<5) Urine Bacteria None seen /hpf (None Seen) Urine Mucus Few (None Seen) Urine Glucose Normal mg/dL (Normal) Microbiology Microbiology Date/Time Source Procedure Growth Status 03/09/25 17:53 Blood Blood Culture - Preliminary NO GROWTH AFTER 24 HOURS OF INCUBATION. Resulted Labs and/or images reviewed: Labs reviewed by me, Image(s) reviewed by me Assessment/Plan Assessment/Plan Impression: -gastroparesis secondary to GLP-1 -morbid obesity -? Bowel obstruction -leukocytosis, rule out sepsis -rule out ileus Plan: Events: Repeat KUB reveals distended colon. Questionable ileus. -CT with oral contrast of abdomen and pelvis -GI consultation -restart clear liquid diet after CT of abdomen and pelvis -continue Protonix, Reglan -continue antibiotic therapy at this time -gentle IV hydration Total time spent with patient discussing and formulating plan of care: 35 minutes. This medical document was created using an electronic medical record system with [employer] dictation system. Although this document has been carefully reviewed, there may still be some phonetic and typographical errors. These areas are purely typographical due to imperfections of the software programs, and do not reflect any compromise in the patient's medical care. Plan discussed with: Patient, Other My Orders Orders - VALDO CARLIN NP Procedure Category Date Status Time Kub Abdomen Single XY 03/11/25 Resulted View 04:00 Npo (Nothing By DIET 03/11/25 Transmitted Mouth) Diet Lunch Date of Service: Mar 11, 2025 Billing Provider: VALDO CARLIN NP Common Visit Codes: [id number] INP/OBS CARE(HIGH) VALDO CARLIN NP Mar 11, 2025 12:08
[2025-03-11] MEDS: OMNIPAQUE 12mg/ml 500ml ORAL SOLUTION PO ONE (16:40)
[2025-03-11 17:00] VITALS: BP 109/66; PULSE 66; RESP 18; TEMP 98; O2SAT 95
[2025-03-11 20:00] VITALS: PULSE 75; RESP 19; O2SAT 95
[2025-03-11 21:00] VITALS: BP 111/79; PULSE 77; RESP 18; TEMP 98.3; O2SAT 95
--- NOTE | 2025-03-11 23:04 | DVH ---
Exam: CT CT AB PEL WITH ORAL CON ONLY History: ileus Comparison Study: CT CT AB PEL WO CON-NO ORAL OR IV on DOS: 03/09/25 TECHNIQUE: Multidetector CT of the abdomen was performed from lung bases to pubic symphysis. Imaging was performed without IV contrast. Axial, coronal and sagittal multiplanar reformats were obtained fr om the axial data set by the technologist. Radiation Dose Information: Dose-length product is 3.92 mGy*cm FINDINGS: Limited sections of the lung bases demonstrate no focal pulmonary mass. The liver, spleen, pancreas, and both adrenal glands demonstrate no acute findings. The gallbladder is surgically absent. The stomach is unremarkable. The small bowel loops are not dilated. The appendix is normal. No colonic obstruction. Colonic diverticulosis without acute diverticulitis. Bilateral kidneys are unremarkable. No hydronephrosis. The urinary bladder is collapsed. No significant lymphadenopathy. No free air or free fluid. The aorta and IVC demonstrate no acute findings. Visualized osseous structures demonstrate no acute abnormality. Small ventral abdominal fat containing hernia. Small bilateral inguinal fat containing hernias. IMPRESSION: 1. No acute intra-abdominal process. 2. Colonic diverticulosis without acute diverticulitis.
[2025-03-12 01:00] VITALS: BP 103/53; PULSE 63; RESP 20; TEMP 97.7; O2SAT 93
[2025-03-12 05:00] VITALS: BP 114/86; PULSE 59; RESP 18; TEMP 97.5; O2SAT 94
[2025-03-12 09:00] VITALS: BP 103/67; PULSE 67; RESP 19; TEMP 98.1; O2SAT 96
--- NOTE | 2025-03-12 12:23 | DVHINCON2 ---
GI Consult Consult Note GI consult note Date of Consultation: 03/12/2025 Chief Complaint: Possible ileus Referring Physician: Che CHAUHAN H&P: 44-year-old male admitted with complains of generalized weakness. Also having distended abdomen dizziness nausea and diarrhea. Patient had similar symptoms two weeks ago which resolved spontaneously. Patient denies any abdominal pain at this. No nausea or vomiting. Bowel movement today green in color no melena or red blood in stool. Patient is started with some rebound two months ago, and dosage has been gradually been increased. Patient reports 25 lb weight loss on this medication in two months. No EGD or colonoscopy in past. Patient has history of GERD treated with Protonix Past Medical History: Gallstone Past Surgical History: Status post cholecystectomy Social History: NO smoking, drinking ETOH and use of illegal drugs. Family History: Noncontributory Review of Systems: Constitutional: no fever, chill, weight loss HEENT: no eye pain, no hearing loss, no oral lesion, no scleral icterus Heart: no chest pain, no chest pressure Lung: no cough, no dyspnea with exertion Abdomen: see HPI Physical exam: General: NAD, AAOX3 Chest: lung rivera clear to auscultation Heart: RRR, no murmur Abdomen: no tenderness to palpation, +BS Labs: Labs Test 03/10/25 07:26 03/09/25 20:56 03/09/25 15:44 Range/Units White Blood Count 11.2 #H 4.4-10.8 10^3/uL Red Blood Count 5.46 4.5-5.90 10^6/uL Hemoglobin 15.7 # 13.5-17.5 g/dL Hematocrit 46.6 # 41.0-53.0 % Mean Corpuscular Volume 85.3 80.0-100.0 fL Mean Corpuscular Hemoglobin 28.8 28.0-32.0 pg Mean Corpuscular Hemoglobin Concent 33.8 32.0-36.0 g/dL Red Cell Distribution Width 14.9 H 11.8-14.3 % Platelet Count 243 140-450 10^3/uL Mean Platelet Volume 7.9 6.9-10.8 fL Neutrophils (%) (Auto) 71.7 37.0-80.0 % Lymphocytes (%) (Auto) 18.1 10.0-50.0 % Monocytes (%) (Auto) 6.3 0.0-12.0 % Eosinophils (%) (Auto) 3.6 0.0-7.0 % Basophils (%) (Auto) 0.3 0.0-2.0 % Neutrophils # (Auto) 8.1 1.6-8.6 10 ^3/uL Lymphocytes # (Auto) 2.0 0.4-5.4 10 ^3/uL Monocytes # (Auto) 0.7 0-1.3 10 ^3/uL Eosinophils # (Auto) 0.4 0-0.8 10 ^3/uL Basophils # (Auto) 0 0-0.2 10 ^3/uL Nucleated Red Blood Cells 0.0 % Sodium Level 140 136-145 mmol/L Potassium Level 3.8 3.5-5.1 mmol/L Chloride Level 111 H 98-107 mmol/L Carbon Dioxide Level 22 20-31 mmol/L Anion Gap 7 5-15 Blood Urea Nitrogen 12 9-23 mg/dL Creatinine 0.84 0.700-1.30 mg/dL Glomerular Filtration Rate Calc 111 >90 mL/min BUN/Creatinine Ratio 14.3 10.0-20.0 Serum Glucose 100 74-106 mg/dL Calcium Level 8.4 L 8.7-10.4 mg/dL Total Bilirubin 0.8 0.2-1.0 mg/dL Aspartate Amino Transferase (AST) 41 H 13-40 U/L Alanine Aminotransferase (ALT) 90 H 7-40 U/L Alkaline Phosphatase 78 46-116 U/L Total Protein 6.2 5.7-8.2 g/dL Albumin 3.8 3.2-4.8 g/dL Urine Color Yellow Yellow Urine Clarity Clear Clear Urine pH 5.5 5.0-9.0 Urine Specific [place] 1.026 1.001-1.035 Urine Protein Trace H Negative Urine Ketones Negative Negative Urine Blood Negative Negative /uL Urine Nitrite Negative Negative Urine Bilirubin Negative Negative Urine Urobilinogen Normal Negative mg/dL Urine Leukocyte Esterase Negative Negative /uL Urine RBC <1 0 - 3 /hpf Urine Microscopic WBC 3 0-3 /HPF Urine Squamous Epithelial Cells Few <5 /hpf Urine Bacteria None seen None Seen /hpf Urine Mucus Few None Seen Urine Glucose Normal Normal mg/dL Prothrombin Time 11.4 9.3-11.8 sec Prothrombin Time INR 1.08 0.9-1.15 Activated Partial Thromboplast Time 27.2 24.5-34.5 SEC Lactic Acid Level 1.5 0.4-2.0 mmol/L Troponin I High Sensitivity < 3 L </=54 ng/L Lipase 41 12-53 U/L Microbiology Date/Time Source Procedure Growth Status 03/09/25 17:53 Blood Blood Culture - Preliminary NO GROWTH AFTER 48 HOURS OF INCUBATION. Resulted Imaging: CT abdomen pelvis 03/09/2025 IMPRESSION: 1. Mildly dilated fluid-filled small bowel may represent enteritis. 2. No free air or free fluid. KUB 03/11/2025 FINDINGS/IMPRESSION: Distention of small-bowel loops up to 4.4 cm which could represent ileus, bowel obstruction. Recommend surgical consultation for further evaluation. Moderate gaseous distention of the large bowel loops up to 6 cm could represent ileus. CT abdomen pelvis 03/11/2025 IMPRESSION: 1. No acute intra-abdominal process. 2. Colonic diverticulosis without acute diverticulitis. Assessment: Abdominal CT results possible ileus resolved Possible gastro paresis secondary to GLP 1 Zepbound Colonic diverticulosis Plan: Discussed with Dr. Torres Soft diet advance to regular as tolerated Reglan Recommend Reglan and MiraLax if patient continues treatment with Zepbound Outpatient GI follow-up for possible GI procedures as needed Discussed plan with patient, at bedside, hospitalist and RN Thank you for this consult Date of Service: Mar 12, 2025 Billing Provider: HUNTER HAYNES Common Visit Codes: CONSULT ONLY Consultation Codes: [id number] CONSULT <60MIN HUNTER HAYNES Mar 12, 2025 12:23
--- NOTE | 2025-03-12 13:10 | DVHDS2 ---
Discharge Summary Date of Admission Mar 09, 2025 at 21:28 Date of Discharge: Mar 12, 2025 Admitting Diagnosis Enteritis Labs/Diagnostic Data: Laboratory Results Test 03/10/25 07:26 03/09/25 20:56 03/09/25 15:44 White Blood Count 11.2 10^3/uL (4.4-10.8) Red Blood Count 5.46 10^6/uL (4.5-5.90) Hemoglobin 15.7 g/dL (13.5-17.5) Hematocrit 46.6 % (41.0-53.0) Mean Corpuscular Volume 85.3 fL (80.0-100.0) Mean Corpuscular Hemoglobin 28.8 pg (28.0-32.0) Mean Corpuscular Hemoglobin Concent 33.8 g/dL (32.0-36.0) Red Cell Distribution Width 14.9 % (11.8-14.3) Platelet Count 243 10^3/uL (140-450) Mean Platelet Volume 7.9 fL (6.9-10.8) Neutrophils (%) (Auto) 71.7 % (37.0-80.0) Lymphocytes (%) (Auto) 18.1 % (10.0-50.0) Monocytes (%) (Auto) 6.3 % (0.0-12.0) Eosinophils (%) (Auto) 3.6 % (0.0-7.0) Basophils (%) (Auto) 0.3 % (0.0-2.0) Neutrophils # (Auto) 8.1 10 ^3/uL (1.6-8.6) Lymphocytes # (Auto) 2.0 10 ^3/uL (0.4-5.4) Monocytes # (Auto) 0.7 10 ^3/uL (0-1.3) Eosinophils # (Auto) 0.4 10 ^3/uL (0-0.8) Basophils # (Auto) 0 10 ^3/uL (0-0.2) Nucleated Red Blood Cells 0.0 % Sodium Level 140 mmol/L (136-145) Potassium Level 3.8 mmol/L (3.5-5.1) Chloride Level 111 mmol/L (98-107) Carbon Dioxide Level 22 mmol/L (20-31) Anion Gap 7 (5-15) Blood Urea Nitrogen 12 mg/dL (9-23) Creatinine 0.84 mg/dL (0.700-1.30) Glomerular Filtration Rate Calc 111 mL/min (>90) BUN/Creatinine Ratio 14.3 (10.0-20.0) Serum Glucose 100 mg/dL (74-106) Calcium Level 8.4 mg/dL (8.7-10.4) Total Bilirubin 0.8 mg/dL (0.2-1.0) Aspartate Amino Transferase (AST) 41 U/L (13-40) Alanine Aminotransferase (ALT) 90 U/L (7-40) Alkaline Phosphatase 78 U/L (46-116) Total Protein 6.2 g/dL (5.7-8.2) Albumin 3.8 g/dL (3.2-4.8) Urine Color Yellow (Yellow) Urine Clarity Clear (Clear) Urine pH 5.5 (5.0-9.0) Urine Specific [place] 1.026 (1.001-1.035) Urine Protein Trace (Negative) Urine Ketones Negative (Negative) Urine Blood Negative /uL (Negative) Urine Nitrite Negative (Negative) Urine Bilirubin Negative (Negative) Urine Urobilinogen Normal mg/dL (Negative) Urine Leukocyte Esterase Negative /uL (Negative) Urine RBC <1 /hpf (0 - 3) Urine Microscopic WBC 3 /HPF (0-3) Urine Squamous Epithelial Cells Few /hpf (<5) Urine Bacteria None seen /hpf (None Seen) Urine Mucus Few (None Seen) Urine Glucose Normal mg/dL (Normal) Prothrombin Time 11.4 sec (9.3-11.8) Prothrombin Time INR 1.08 (0.9-1.15) Activated Partial Thromboplast Time 27.2 SEC (24.5-34.5) Lactic Acid Level 1.5 mmol/L (0.4-2.0) Troponin I High Sensitivity < 3 ng/L (</=54) Lipase 41 U/L (12-53) Other Laboratory Tests 03/10/25 07:26 Brief Hx & Hospital Course: History of Present Illness The patient is a 44-year-old male with past medical history of gallstones status post cholecystectomy who presented to [facility] ED with complaint of generalized weakness. Patient reports symptoms progressively get worse with severely distended abdomen, dizziness, nausea, and diarrhea in yellow color. Patient reports similar episode a proximally two weeks ago that lasted for one week and resolved spontaneously, however, this time his abdomen is more distended than usual that prompted this visit. Patient was seen and evaluated in the ED, laboratory data shows WBC 17.8, platelets 298, sodium 138, potassium 3.8, BUN 21, creatinine 1.05, GFR 90, glucose 129, calcium 9.6, albumin 4.9, troponin 3, AST 59, ALT 125, blood pressure 119/62, heart rate 93, temperature 97.6 F, O2 saturation 93% on oxygen. Abdomen/pelvis CT revealing mildly dilated fluid-filled small bowel may represent enteritis, no free air or free fluid. Chest x-ray revealing enteric tube below the left diaphragm in the stomach. Patient was started on IV antibiotic regimen Flagyl, please see medication orders section in the computer. On my assessment, patient denied chest pain, no headache, no dizziness, currently on oxygen, no abdominal pain, no nausea diarrhea at this moment, no fever, no chills. Patient was admitted for further evaluation and medical management. Course of hospitalization: Reviewing patient's medical records reveals that he is currently taking Zepbound. Patient had NG tube placed which was removed. He was also placed on empiric antibiotic therapy. Patient's symptoms improved. Repeat KUB reveals questionable ileus. Patient had CT scan of abdomen and pelvis with oral contrast which revealed no acute abnormalities. Patient was tolerating regular diet today. Patient will be discharged home and is instructed to follow up with his PCP in 1-2 weeks. Education was given to the patient regarding possible gastroparesis secondary to Zepbound. Given his persistent dyspepsia, patient will be prescribed Protonix 40 mg p.o. daily for a 14 day course as well as being prescribed Reglan 10 mg p.o. tablet every 8 hours as needed for nausea/vomiting. Patient was agreeable with discharge plan. All questions answered. Physical examination General: Alert and Oriented x3. No acute distress. Well-nourished. Morbid obesity Eyes: EOMI. Anicteric. HENT: Moist mucous membranes. Lungs: Clear to auscultation bilaterally. No accessory muscle use. Cardiovascular: Regular rate and rhythm. No murmur. No JVD. Abdomen: Soft, non-tender and non-distended. No palpable masses. Extremities: No edema. Non-tender. Skin: No rashes or lesions. Warm. Neurologic: No focal neurological deficits. CN II-XII grossly intact, but not individually tested. Psychiatric: Cooperative. Appropriate mood and affect. Total time spent with patient discussing and formulating plan of care: 35 minutes. This medical document was created using an electronic medical record system with [employer] system. Although this document has been carefully reviewed, there may still be some phonetic and typographical errors. These areas are purely typographical due to imperfections of the software programs, and do not reflect any compromise in the patient's medical care. Consults/Reason for consult Gastroenterology: Questionable ileus Condition at Discharge: Fair Final Diagnosis/Problems List Abdominal pain secondary to gastroparesis Secondary diagnosis: -gastroparesis secondary to GLP-1 -morbid obesity -bowel obstruction ruled out -leukocytosis, rule out sepsis -ruled out ileus Discharge Disposition: Home Discharge Instruct/Medications Diet: Regular Activity: No Restrictions, As Tolerated Follow Up/Referral: Follow up with PCP in 1-2 weeks Medications: Protonix 40 mg p.o. daily times 14 days Reglan 10 mg tablet p.o. q.8 hours as needed for nausea Scheduled Semaglutide (Ozempic), 2.5 MG SC QWEEKLY, (Reported) 36 Discharge Statement: "Patient was advised to return to the ER or call 911 if any headaches, dizziness, shortness of breath, chest pain, abdominal pain, bleeding, fevers, or worsening of medical condition. Patient was counseled about treatment plan, medications, possible side effects, patientverbalized understanding. All questions were answered to the best of my ability. This discharge took greater then 30 minutes in planning, reviewing documentation, counseling the patient, and discussing with other team members." ASSESSMENT ASSESSMENT Assessment Abdominal pain secondary to gastroparesis Date of Service: Mar 12, 2025 Billing Provider: VALDO CARLIN NP Common Visit Codes: [id number] INP/OBS CARE(HIGH) VALDO CARLIN NP Mar 12, 2025 13:10
[2025-03-12] MEDS: METOCLOPRAMIDE HCL 10 MG TAB PO SCH (14:00)
== END 2025-03-12 15:12 | disposition home or self-care (01) | DRG 720 ==
LOC: EDUNIT# 15:29 → EDBD 15:29 → ER 15:29 → OVERFLOW 21:28 → TELE-WESTW 23:29 → WEST WING 03-12 03:15
PROVIDERS: ADMIT Nurse Practitioner Acute Care; ATTEND Nurse Practitioner Acute Care
DX: A41.9 Sepsis, unspecified organism (principal); Z68.43 Body mass index [BMI] 50.0-59.9, adult; E66.01 Morbid (severe) obesity due to excess calories; K31.84 Gastroparesis; Z90.49 Acquired absence of other specified parts of digestive tract; Z79.899 Other long term (current) drug therapy
CPT/HCPCS: 36415; 71045; 74018; 74176; 80053; 81001; 83605; 83690; 84484; 85025; 85610; 85730; 87040; 96361; 96365; G0378; J2405; J3490